=== PATIENT | female | born 1965 | race Caucasian/White ===

== ENCOUNTER 2017-12-05 05:25 | Inpatient (IN) | payer BC, OTHER ==
[2017-11-27 12:10] LABS: HEMATOCRIT 37.9 % (37.0-47.0); MCH 30.6 pg (26.0-34.0); MCHC 34.4 g/dL (28.0-37.0); RBC 4.25 mil/uL (4.20-5.00); RDW 15.1 % (10.5-14.5); WBC 8.6 thou/uL (4.0-11.0)
[2017-11-27 12:14] LABS: URINE BILIRUBIN NEGATIVE (Negative); URINE BLOOD NEGATIVE (Negative); URINE CLARITY CLEAR; URINE COLOR YELLOW; URINE GLUCOSE-RANDOM* NEGATIVE (Negative); URINE KETONES NEGATIVE (Negative); URINE LEUKOCYTES-REFLEX NEGATIVE (Negative); URINE NITRITE-REFLEX NEGATIVE (Negative); URINE PROTEIN (DIPSTICK) NEGATIVE (Negative); URINE UROBILINOGEN 0.2 E.U./dl (0.2-1.0)
[2017-11-27 12:21] LABS: ALBUMIN 3.7 g/dL (3.4-5.0); CALCIUM 9.4 mg/dL (8.5-10.1); CREATININE 0.7 mg/dL (0.6-1.0); POTASSIUM 4.1 mmol/L (3.5-5.1)
[2017-11-27 12:22] LABS: PROTIME 9.7 Seconds (9.3-11.4)
[~2017-12-05] VITALS: Ht 162.6 cm; Wt 133.4 kg
--- NOTE | ~2017-12-05 | O ---
[facility] [place] [address] OPERATIVE REPORT Name: GRECIA GALVAN Room #: 408-P [facility] IN M.R.#: [id number] Admission: 12/05/17 Attend Phys: Daniel Buitrago MD Discharge: Date of : 65 Report #: [id number] THIS REPORT FOR: //name// CC: Daniel Buitrago Evelyn Brown DATE OF SERVICE: 12/05/2017 PREOPERATIVE DIAGNOSIS: Degenerative arthritis, left knee. POSTOPERATIVE DIAGNOSIS: Degenerative arthritis, left knee. PROCEDURE: Left total knee arthroplasty. SURGEON: Daniel Buitrago MD. INDICATIONS: This heavy 52-year-old female has progressive degenerative arthritis in multiple joints. She already underwent right total hip arthroplasty in the past with good result. She is now having progressive left knee pain. Clinical evaluation and MRI scan reveal moderate degenerative change, but her subjective symptoms are much more severe and at this point intolerable. We discussed arthroscopic debridement, but she feels her symptoms and findings are too severe and notes she has had a very favorable result following hip replacement. Consequently, she has elected to go ahead with left total knee replacement at this time. DESCRIPTION OF PROCEDURE: The patient was taken to the operating room where she was placed under general anesthesia. Prophylactic intravenous antibiotics were administered. The left knee and leg were meticulously prepped and draped and a thigh tourniquet inflated to 300 mmHg. An anterior longitudinal skin incision was made and carried through the medial retinaculum. The patellar reflected laterally. Moderate degenerative change in all 3 compartments was noted. There was more severe cartilage damage than expected based upon the MRI, but this is consistent with her severe subjective symptoms. There was a moderate amount of generalized chondrocalcinosis with some loose bodies in the joint. There was also grade 4 chondromalacia of the medial femoral condyle. There is less severe damage on the lateral side and moderate damage at the patella. Nevertheless, these findings are consistent with her symptoms, and I feel appropriate to proceed with a total knee replacement. The [employer] and [employer] knee system was utilized. Intramedullary guides were used on both the femur and the tibia. The femur was cut in 5 degrees of valgus. The tibia cut perpendicular to the long axis of the bone. The femur seemed best suited for a size 3 femoral component, and the tibia was also nicely suited for a size 3 tibial component. The patellar surface was resected and a 32 mm patellar button fit nicely. A trial reduction was performed and a 9 mm polyethylene insert fit nicely. This resulted in full knee extension and flexion beyond 135 degrees with good [address] [address] OPERATIVE REPORT Name: GRECIA GALVAN Room #: 408-P [facility] IN M.R.#: [id number] Admission: 12/05/17 Attend Phys: Daniel Buitrago MD Discharge: Date of : 65 Report #: [id number] stability on varus and valgus stress. The patella seemed to track nicely and appeared to be stable. The trial components were removed. The bony surfaces were thoroughly irrigated and dried. The intramedullary canal was blocked with a bone block on both the femur and the tibia. Methyl methacrylate cement was mixed and injected into the porous surface of the tibia. The [employer] size 3 left Haylee 2 base plate was applied. This was impacted into position and seated nicely and appeared to be secure. Excess cement was removed from around its margin. A 9 mm Legion polyethylene high flexion cruciate retaining insert was then snapped into position and seated nicely and appeared to be secure. A left size 3 cruciate retaining Legion femoral component was impacted on the distal femur. A small amount of cement was used at the distal aspect at the anchor holes as the bone is mildly osteoporotic. The fit was excellent and appeared to be secure. Excess cement was removed from around the margin. The patella was cemented into place using appropriate anchor holes and cement using a 32 mm size Haylee 2 resurfacing patellar component. This was held securely with a patellar clamp until the cement had hardened. Once the cement was firm, range of motion, alignment, stability were once again assessed and felt to be satisfactory. The knee demonstrated good alignment and full knee extension with flexion beyond 130 degrees, limited principally by her size. The tourniquet was then deflated after a total tourniquet time of 55 minutes. The joint was copiously irrigated. Good hemostasis was established. A single Hemovac was left in the wound exiting through a separate stab incision. The fascia was closed with multiple #1 Vicryl sutures. The subcutaneous tissues were closed with 0 Monocryl. The skin was closed with skin yoli. A sterile dressing was applied. The patient was awakened and returned to recovery room in good condition. <ELECTRONICALLY SIGNED> By: Daniel Buitrago MD 12/06/17 [id number] [id number] Daniel Buitrago MD /nt
[~2017-12-05 05:25] MED LIST: ALBUTEROL INH INH; CENTRUM SILVER1 EAC4 PO; CONCERTA36 M1 PO; CYCLOBENZAPRINE10 MG PO; FISH OIL 1,0001 EAC1 PO; FISH OIL 1,001000 M2 PO; GABAPENTIN 100100 MG PO; IBUPROFEN200 M1 PO; LOESTRIN1 EAC1; METFORMIN HCL500 MG PO; MOBIC7.5 M1 PO; NEXIUM 40 MG CA40 M1 PO; PERCOCET 10-321 EACH PO; PRILOSEC 20 MG20 MG PO; PROAIR HFA8.5 GM INH; PROTONIX40 M1 PO; PROVIGIL 200 M200 M1 PO; SINGULAIR 10 MG10 MG PO; SYMBICORT160 MCG/4. INH; VITAMIN D1000 UNI1 PO; XARELTO10 MG PO; ZOLOFT50 MG PO
[2017-12-05 07:50] VITALS: BP 132/54
[2017-12-05 12:15] VITALS: BP 137/64
[2017-12-05 12:25] VITALS: BP 139/63
[2017-12-05 15:00] VITALS: BP 140/72
[2017-12-05 20:38] VITALS: BP 136/75
[2017-12-06 04:00] VITALS: BP 114/43
[2017-12-06 06:02] LABS: HEMATOCRIT 29.7 % (37.0-47.0); HEMOGLOBIN 10.1 gm/dL (12.0-15.0); MCH 30.7 pg (26.0-34.0); MCV 90.2 fL (80.0-100.0); RBC 3.3 mil/uL (4.20-5.00); RDW 15.7 % (10.5-14.5); WBC 12.5 thou/uL (4.0-11.0)
[2017-12-06 08:57] VITALS: BP 107/58
[2017-12-06 14:10] VITALS: BP 107/58
[2017-12-06 17:29] VITALS: BP 111/55
[2017-12-06 19:44] VITALS: BP 136/53
[2017-12-07 07:43] VITALS: BP 128/64
[2017-12-07 08:02] LABS: HEMATOCRIT 29.2 % (37.0-47.0); HEMOGLOBIN 9.8 gm/dL (12.0-15.0); MCH 30.7 pg (26.0-34.0); MCHC 33.7 g/dL (28.0-37.0); MCV 91.2 fL (80.0-100.0); RBC 3.2 mil/uL (4.20-5.00); RDW 16.4 % (10.5-14.5); WBC 8.6 thou/uL (4.0-11.0)
[2017-12-07] MEDS ORDERED: CYCLOBENZAPRINE5 MG PO (09:32)
[2017-12-07] MEDS ORDERED: XARELTO10 MG PO (09:33)
[2017-12-07] MEDS ORDERED: OXYCODONE-APAP1 EAC6 PO (09:33)
[2017-12-07] MEDS ORDERED: IBUPROFEN 800800 M1 PO (09:34)
== END 2017-12-07 11:30 | disposition home health service (06) | DRG 470 ==
LOC: TBA 05:25 → PRE 05:36 → 4N 12:35 → SICU 12-06 18:08
PROVIDERS: Orthopaedic Surgery
PROC: 0SRD0J9 Replacement of Left Knee Joint with Synthetic Substitute, Cemented, Open Approach (ICD-10-PCS; principal; 2017-12-05)
DX: M17.12 Unilateral primary osteoarthritis, left knee (principal); J45.909 Unspecified asthma, uncomplicated; F41.9 Anxiety disorder, unspecified; Z79.899 Other long term (current) drug therapy
CPT/HCPCS: 10790; 15002; 50010; 50101; 50415; 50954; 51130; 51225; 51412; 51771; 56525; 62110; 62900; 70005